=== PATIENT | male | born 1930 | race Caucasian/White ===

== ENCOUNTER 2018-08-13 21:10 | Inpatient (IN) ==
--- NOTE | 2018-08-13 21:31 | ED ---
HPI General Chief Complaint: Shortness of Breath/Dyspnea Stated Complaint: sob 111x 24 hours Time Seen by Provider: 08/13/18 21:25 Source: patient and family (Dr Simon-son) Mode of arrival: ambulatory Limitations: no limitations History of Present Illness MD Complaint: Reports shortness of breath and cough; Denies pain with inspiration, chest pain and "asthma attack" Onset (ago): day(s) (2) Context: Reports occurred during exertion; Denies recent illness, choking/ aspiration, medication noncompliance, allergen exposure, recent travel, smoke/ fume exposure, anxiety, trauma/injury, elevated blood glucose and CO exposure Severity: moderate Consistency/Duration: constant Relieving factors: upright position Exacerbating factors: exertion and coughing Known history of: Reports recurrent pneumonia; Denies COPD, asthma, congestive heart failure, diabetes, aspiration pneumonia, HIV, PE, DVT and IVDU Associated symptoms: Reports cough and wheezing; Denies chest pain, pain with inspiration, fever, sputum production, orthopnea, lower extremity pain, polyuria , polydipsia, paresthesias, palpitations, carpopedal spasm, hemoptysis, diaphoresis, nausea/vomiting, syncope, abdominal pain, rash, sense of impending doom, chest congestion, dizziness and lightheadedness Treatment prior to arrival: Reports other (son gave dose azithromycin today 500mg) Related Data Home oxygen amount: none Home Medications Medication Instructions Recorded Confirmed Aspirin Childrens 81 mg PO DAILY 08/13/18 08/13/18 allopurinol 300 mg PO DAILY 08/13/18 08/13/18 amlodipine [Norvasc] 10 mg PO DAILY 08/13/18 08/13/18 hydrochlorothiazide 12.5 mg PO DAILY 08/13/18 08/13/18 losartan 100 mg PO DAILY 08/13/18 08/13/18 metoprolol succinate [Toprol XL] 200 mg PO DAILY 08/13/18 08/13/18 pravastatin 40 mg PO DAILY 08/13/18 08/13/18 Allergies Allergy/AdvReac Type Severity Reaction Status Date / Time No Known Allergies Allergy Verified 08/13/18 21:26 Review of Systems ROS: all other systems reviewed are negative [facility] Medical History Medical History HTN (hypertension) (Acute) High cholesterol (Acute) Osteomyelitis (Acute) Pacemaker (Acute) Pneumonia (Acute) Atrial fibrillation (Acute) Surgical History Surgical History History of tonsillectomy (Acute) Hx of CABG (Acute) Social History Social History Substance History: No History of Abuse Second Hand Smoke Exposure: No Smoking Status: Never smoker How Often Do You Have a Drink Containing Alcohol: Never Recent Travel in [facility] within the Last 8 Weeks: Yes Recent Out of Country Travel within the Last 8 Weeks: No Exam Narrative Exam Narrative: GENERAL: Well-nourished, well-developed patient. No acute distress no respiratory distress with no accessory muscle use. No stridor no hoarseness. SKIN: Focused skin assessment warm/dry. HEAD: Normocephalic. EYES: No scleral icterus. No injection or drainage. NECK: Supple, trachea midline. No JVD or lymphadenopathy. CARDIOVASCULAR: Regular rate and rhythm without murmurs, gallops, or rubs. Radial dorsalis pedis pulses 2+ to palpation bilaterally. RESPIRATORY: Breath sounds equal bilaterally few end expiratory wheezing noted. No accessory muscle use. GASTROINTESTINAL: Abdomen soft, non-tender, nondistended. MUSCULOSKELETAL: No cyanosis, or edema. No calf tenderness swelling or Homans sign. BACK: Nontender without obvious deformity. No CVA tenderness. Course Initial Documented Vital Signs Pulse Rate 60 08/13/18 21:15 Last Documented Vital Signs Temperature 96.8 F L 08/15/18 20:00 Pulse Rate 60 08/15/18 20:20 Respiratory Rate 20 08/15/18 20:20 Blood Pressure 157/67 H 08/15/18 20:00 Pulse Oximetry 94 L 08/15/18 20:20 Medical Decision Making [facility] Narrative Medical decision making narrative: 87-year-old male with known history of previous pneumonia with current Pneumovax status and flu vaccine presents to the emergency department with onset of cold-like symptoms and congestion with wheezing since last evening. Symptoms have progressively worsened today. Patient was given dose of 500 mg azithromycin by his son Dr. Simon earlier today. Patient is followed by Dr. Gamez who called the emergency department requesting patient to be evaluated and for him to be notified. Patient has had nonproductive cough does not report orthopnea PND but has had some dyspnea on exertion. No dyspnea at rest. No lower extremity pain or swelling. Patient does have prior history of cardiac disease with previous bypass pacemaker and hypertension as well as borderline hyperglycemia. Patient denies any chest pain pleuritic chest pain no recent long distance travel. Patient placed on quality assurance monitor chassis with continuous pulse oximetry IV access obtain blood cultures lactic acid collected as well as specimen for influenza antigen. Patient is Eddie received 500 mg of azithromycin x1 dose today and patient will be presumptively administered Rocephin 1 g IV piggyback for possible community-acquired pneumonia. discussed with Dr Gamez requests [facility] admit Medical Screen Exam Complete: Yes Emergency Medical Condition: Yes Lab Data Result diagrams: 08/15/18 05:30 08/15/18 05:30 Lab Results 08/13/18 08/13/18 08/13/18 Range/Units 21:30 21:30 21:30 CBC w Diff Auto diff final WBC 13.3 H (4.0-11.0) th/mm3 RBC 3.95 L (4.50-5.90) mil/mm3 Hgb 12.1 L (13.0-17.0) gm/dL Hct 36.8 L (39.0-51.0) % MCV 93.1 (80.0-100.0) fL MCH 30.5 (27.0-34.0) pg MCHC 32.8 (32.0-36.0) % RDW 13.5 (11.6-17.2) % Plt Count 215 (150-450) th/mm3 MPV 8.3 (7.0-11.0) fL Neut % (Auto) 81.2 H (16.0-70.0) % Lymph % (Auto) 9.7 (9.0-44.0) % [place] % (Auto) 7.8 (0.0-8.0) % Eos % (Auto) 1.0 (0.0-4.0) % Baso % (Auto) 0.3 (0.0-2.0) % Neut # (Auto) 10.9 H (1.8-7.7) th/mm3 Lymph # (Auto) 1.3 (1.0-4.8) th/mm3 [place] # (Auto) 1.0 H (0.0-0.9) th/mm3 Eos # (Auto) 0.1 (0.0-0.4) th/mm3 Baso # (Auto) 0.0 (0.0-0.2) th/mm3 WBC Differential . Differential Comment . PT 10.4 (9.8-11.6) sec INR 1.0 Ratio APTT 28.7 (23.4-31.7) sec Sodium 129 L (136-145) meq/L Potassium 4.1 (3.5-5.1) meq/L Chloride 95 L (98-107) meq/L Carbon Dioxide 25.3 (21.0-32.0) meq/L Anion Gap 9 (5-15) meq/L BUN 27 H (7-18) mg/dL Creatinine 1.30 (0.60-1.30) mg/dL Estimated GFR 52 L (>89) mL/min Random Glucose 174 H (74-106) mg/dL Lactic Acid (0.4-2.0) mmol/L Calcium 8.1 L (8.5-10.1) mg/dL Magnesium 1.9 (1.5-2.5) mg/dL Total Bilirubin 0.7 (0.2-1.0) mg/dL AST 16 (15-37) U/L ALT 20 (12-78) U/L Alkaline Phosphatase 120 H (45-117) U/L Troponin I Less than 0.02 L (0.02-0.05) ng/mL B-Natriuretic Peptide (0-100) pg/mL Total Protein 7.2 (6.4-8.2) g/dL Albumin 3.5 (3.4-5.0) g/dL Urine Color (Yellw/Straw) Urine Clarity (Clear) Urine pH (5.0-8.5) Ur Specific Martin (1.002-1.035) Urine Protein (Neg-Trace) mg/dL Urine Glucose (UA) (Negative) mg/dL Urine Ketones (Negative) mg/dL Urine Occult Blood (Negative) Urine Nitrate (Negative) Urine Bilirubin (Negative) Urine Urobilinogen (Less than 2) mg/dL Ur Leukocyte Esterase (Negative) Urine RBC (0-3) /hpf Urine WBC (0-5) /hpf Ur Squamous Epith Cells (0-5) /hpf Micro UA Comment Ur Microscopic Review Urine Culture Comments 08/13/18 08/13/18 08/14/18 Range/Units 21:30 22:40 02:20 CBC w Diff WBC (4.0-11.0) th/mm3 RBC (4.50-5.90) mil/mm3 Hgb (13.0-17.0) gm/dL Hct (39.0-51.0) % MCV (80.0-100.0) fL MCH (27.0-34.0) pg MCHC (32.0-36.0) % RDW (11.6-17.2) % Plt Count (150-450) th/mm3 MPV (7.0-11.0) fL Neut % (Auto) (16.0-70.0) % Lymph % (Auto) (9.0-44.0) % [place] % (Auto) (0.0-8.0) % Eos % (Auto) (0.0-4.0) % Baso % (Auto) (0.0-2.0) % Neut # (Auto) (1.8-7.7) th/mm3 Lymph # (Auto) (1.0-4.8) th/mm3 [place] # (Auto) (0.0-0.9) th/mm3 Eos # (Auto) (0.0-0.4) th/mm3 Baso # (Auto) (0.0-0.2) th/mm3 WBC Differential Differential Comment PT (9.8-11.6) sec INR Ratio APTT (23.4-31.7) sec Sodium (136-145) meq/L Potassium (3.5-5.1) meq/L Chloride (98-107) meq/L Carbon Dioxide (21.0-32.0) meq/L Anion Gap (5-15) meq/L BUN (7-18) mg/dL Creatinine (0.60-1.30) mg/dL Estimated GFR (>89) mL/min Random Glucose (74-106) mg/dL Lactic Acid 1.7 (0.4-2.0) mmol/L Calcium (8.5-10.1) mg/dL Magnesium (1.5-2.5) mg/dL Total Bilirubin (0.2-1.0) mg/dL AST (15-37) U/L ALT (12-78) U/L Alkaline Phosphatase (45-117) U/L Troponin I (0.02-0.05) ng/mL B-Natriuretic Peptide 320 H (0-100) pg/mL Total Protein (6.4-8.2) g/dL Albumin (3.4-5.0) g/dL Urine Color Yellow (Yellw/Straw) Urine Clarity Clear (Clear) Urine pH 6.0 (5.0-8.5) Ur Specific Martin 1.015 (1.002-1.035) Urine Protein Negative (Neg-Trace) mg/dL Urine Glucose (UA) Negative (Negative) mg/dL Urine Ketones Negative (Negative) mg/dL Urine Occult Blood Negative (Negative) Urine Nitrate Negative (Negative) Urine Bilirubin Negative (Negative) Urine Urobilinogen 0.2 (Less than 2) mg/dL Ur Leukocyte Esterase Negative (Negative) Urine RBC 0-3 (0-3) /hpf Urine WBC 0-5 (0-5) /hpf Ur Squamous Epith Cells 0-5 (0-5) /hpf Micro UA Comment Culture not ind Ur Microscopic Review Microscopic reviewed Urine Culture Comments Culture not ind 08/14/18 08/14/18 08/15/18 Range/Units 06:45 06:45 05:30 CBC w Diff Auto diff final Auto diff final WBC 12.3 H 15.8 H (4.0-11.0) th/mm3 RBC 3.78 L 3.75 L (4.50-5.90) mil/mm3 Hgb 11.8 L 11.8 L (13.0-17.0) gm/dL Hct 35.6 L 35.0 L (39.0-51.0) % MCV 94.1 93.3 (80.0-100.0) fL MCH 31.3 31.5 (27.0-34.0) pg MCHC 33.2 33.8 (32.0-36.0) % RDW 13.3 13.4 (11.6-17.2) % Plt Count 199 209 (150-450) th/mm3 MPV 8.3 8.4 (7.0-11.0) fL Neut % (Auto) 93.3 H 88.3 H (16.0-70.0) % Lymph % (Auto) 5.0 L 5.8 L (9.0-44.0) % [place] % (Auto) 1.0 5.7 (0.0-8.0) % Eos % (Auto) 0.5 0.1 (0.0-4.0) % Baso % (Auto) 0.2 0.1 (0.0-2.0) % Neut # (Auto) 11.5 H 14.0 H (1.8-7.7) th/mm3 Lymph # (Auto) 0.6 L 0.9 L (1.0-4.8) th/mm3 [place] # (Auto) 0.1 0.9 (0.0-0.9) th/mm3 Eos # (Auto) 0.1 0.0 (0.0-0.4) th/mm3 Baso # (Auto) 0.0 0.0 (0.0-0.2) th/mm3 WBC Differential . . Differential Comment . . PT (9.8-11.6) sec INR Ratio APTT (23.4-31.7) sec Sodium 131 L (136-145) meq/L Potassium 3.9 (3.5-5.1) meq/L Chloride 93 L (98-107) meq/L Carbon Dioxide 26.3 (21.0-32.0) meq/L Anion Gap 12 (5-15) meq/L BUN 29 H (7-18) mg/dL Creatinine 1.30 (0.60-1.30) mg/dL Estimated GFR 52 L (>89) mL/min Random Glucose 215 H (74-106) mg/dL Lactic Acid (0.4-2.0) mmol/L Calcium 8.1 L (8.5-10.1) mg/dL Magnesium (1.5-2.5) mg/dL Total Bilirubin (0.2-1.0) mg/dL AST (15-37) U/L ALT (12-78) U/L Alkaline Phosphatase (45-117) U/L Troponin I (0.02-0.05) ng/mL B-Natriuretic Peptide (0-100) pg/mL Total Protein (6.4-8.2) g/dL Albumin (3.4-5.0) g/dL Urine Color (Yellw/Straw) Urine Clarity (Clear) Urine pH (5.0-8.5) Ur Specific Martin (1.002-1.035) Urine Protein (Neg-Trace) mg/dL Urine Glucose (UA) (Negative) mg/dL Urine Ketones (Negative) mg/dL Urine Occult Blood (Negative) Urine Nitrate (Negative) Urine Bilirubin (Negative) Urine Urobilinogen (Less than 2) mg/dL Ur Leukocyte Esterase (Negative) Urine RBC (0-3) /hpf Urine WBC (0-5) /hpf Ur Squamous Epith Cells (0-5) /hpf Micro UA Comment Ur Microscopic Review Urine Culture Comments 08/15/18 Range/Units 05:30 CBC w Diff WBC (4.0-11.0) th/mm3 RBC (4.50-5.90) mil/mm3 Hgb (13.0-17.0) gm/dL Hct (39.0-51.0) % MCV (80.0-100.0) fL MCH (27.0-34.0) pg MCHC (32.0-36.0) % RDW (11.6-17.2) % Plt Count (150-450) th/mm3 MPV (7.0-11.0) fL Neut % (Auto) (16.0-70.0) % Lymph % (Auto) (9.0-44.0) % [place] % (Auto) (0.0-8.0) % Eos % (Auto) (0.0-4.0) % Baso % (Auto) (0.0-2.0) % Neut # (Auto) (1.8-7.7) th/mm3 Lymph # (Auto) (1.0-4.8) th/mm3 [place] # (Auto) (0.0-0.9) th/mm3 Eos # (Auto) (0.0-0.4) th/mm3 Baso # (Auto) (0.0-0.2) th/mm3 WBC Differential Differential Comment PT (9.8-11.6) sec INR Ratio APTT (23.4-31.7) sec Sodium 129 L (136-145) meq/L Potassium 4.2 (3.5-5.1) meq/L Chloride 92 L (98-107) meq/L Carbon Dioxide 25.8 (21.0-32.0) meq/L Anion Gap 11 (5-15) meq/L BUN 43 H (7-18) mg/dL Creatinine 1.40 H (0.60-1.30) mg/dL Estimated GFR 48 L (>89) mL/min Random Glucose 210 H (74-106) mg/dL Lactic Acid (0.4-2.0) mmol/L Calcium 8.1 L (8.5-10.1) mg/dL Magnesium (1.5-2.5) mg/dL Total Bilirubin (0.2-1.0) mg/dL AST (15-37) U/L ALT (12-78) U/L Alkaline Phosphatase (45-117) U/L Troponin I (0.02-0.05) ng/mL B-Natriuretic Peptide (0-100) pg/mL Total Protein (6.4-8.2) g/dL Albumin (3.4-5.0) g/dL Urine Color (Yellw/Straw) Urine Clarity (Clear) Urine pH (5.0-8.5) Ur Specific Martin (1.002-1.035) Urine Protein (Neg-Trace) mg/dL Urine Glucose (UA) (Negative) mg/dL Urine Ketones (Negative) mg/dL Urine Occult Blood (Negative) Urine Nitrate (Negative) Urine Bilirubin (Negative) Urine Urobilinogen (Less than 2) mg/dL Ur Leukocyte Esterase (Negative) Urine RBC (0-3) /hpf Urine WBC (0-5) /hpf Ur Squamous Epith Cells (0-5) /hpf Micro UA Comment Ur Microscopic Review Urine Culture Comments Imaging Data Radiologist's impression: Chest X-Ray 08/13/18 21:25 CONCLUSION: No acute disease Chest X-Ray 08/15/18 00:00 CONCLUSION: 1. Cardiomegaly with mild positive fluid balance. ECG Data EKG Prior to Arrival: Yes Attestation: I personally reviewed and interpreted this ECG as follows: (EKG: Ventricular paced rhythm rate 63) Discharge Plan Discharge Disposition Patient Disposition: ED Admit(ED Internal Use Only) Discharge Condition Condition: Stable Discharge Order Discharge Orders: ED Use Only Admit Order (Routine); Ordered 08/13/18 Ordered By: Josie Jennings Discharge Details Diagnosis: Dyspnea, Bronchitis, CRI (chronic renal insufficiency) Physicians Team ED Provider: Josie Jennings Primary Care Provider: Enrrique Gamez Attending Provider: Baljinder Montes Other Providers: Abrahan Beckham ED Status: Left Department Discharge Information Discharge Date/Time: 08/14/18 00:35
--- NOTE | 2018-08-13 21:45 | XR ---
EXAM DATE: 08/13/2018 9:41 PM EST AGE/SEX: 87 years / Male INDICATIONS: Shortness of breath. CLINICAL DATA: This is the patient's initial encounter. Patient reports that signs and symptoms have been present for 1 day and indicates a pain score of 0/10. MEDICAL/SURGICAL HISTORY: . Renal failure, chronic. Hypertension. Cardiovascular disease; pneum onia. CABG. Pacemaker. COMPARISON: [facility], XR CHEST PA AND LAT, 01/18/2018. . FINDINGS: A pacing implement is present with control pack over left upper chest.. Cardiac silhouette is stable and mildly enlarged. No focal infiltrate or effusion. CONCLUSION: No acute disease Electronically signed by: Yg Bullock MD Board Certified Radiologist 08/13/2018 9:43 PM EST
[2018-08-13 21:58] LABS: Baso % (Auto) 0.3 % (0.0-2.0); Eos # (Auto) 0.1 th/mm3 (0.0-0.4); Hematocrit 36.8 % (39.0-51.0); Hemoglobin 12.1 gm/dL (13.0-17.0); Lymph # (Auto) 1.3 th/mm3 (1.0-4.8); Lymph % (Auto) 9.7 % (9.0-44.0); Mean Corpuscular HGB Conc 32.8 % (32.0-36.0); Mean Corpuscular Hemoglobin 30.5 pg (27.0-34.0); Mean Corpuscular Volume 93.1 fL (80.0-100.0); Mean Platelet Volume 8.3 fL (7.0-11.0); Mono % (Auto) 7.8 % (0.0-8.0); Neut # (Auto) 10.9 th/mm3 (1.8-7.7); Neut % (Auto) 81.2 % (16.0-70.0); Platelet Count 215 th/mm3 (150-450); Red Blood Count 3.95 mil/mm3 (4.50-5.90); Red Cell Distribution Width 13.5 % (11.6-17.2); White Blood Count 13.3 th/mm3 (4.0-11.0)
[2018-08-13 22:09] LABS: Chloride 95 meq/L (98-107); Potassium 4.1 meq/L (3.5-5.1); Sodium 129 meq/L (136-145)
[2018-08-13 22:12] LABS: Albumin 3.5 g/dL (3.4-5.0); Calcium 8.1 mg/dL (8.5-10.1)
[2018-08-13 22:13] LABS: Anion Gap 9 meq/L (5-15); Blood Urea Nitrogen 27 mg/dL (7-18); Carbon Dioxide 25.3 meq/L (21.0-32.0); Glucose,Random 174 mg/dL (74-106); Magnesium 1.9 mg/dL (1.5-2.5)
[2018-08-13 22:15] LABS: Activated Partial Thrombo Time 28.7 sec (23.4-31.7); Prothrombin Time 10.4 sec (9.8-11.6)
[2018-08-13 22:16] LABS: Alanine Aminotransferase 20 U/L (12-78); Aspartate Aminotransferase 16 U/L (15-37)
[2018-08-13 22:17] LABS: Glomerular Filtration Rate 52 mL/min (>89)
[2018-08-13 22:18] LABS: Total Protein 7.2 g/dL (6.4-8.2)
[2018-08-13 22:19] LABS: Alkaline Phosphatase 120 U/L (45-117)
[2018-08-13] MEDS ORDERED: Acetaminophen 325 MG Tablet PO PRN (22:58)
[2018-08-13] MEDS ORDERED: Bisacodyl 10 MG Supp RECTAL PRN (22:58)
[2018-08-13] MEDS ORDERED: MethylPREDNISolone Sod Succinate Inj 125 MG/2 ML Vial IV.PUSH ONE (23:36)
[2018-08-14] MEDS: Heparin - SQ 10,000 UNITS/ML Vial SQ SCH ×2 (00:17→10:44)
[2018-08-14 02:51] LABS: Bilirubin,Urine Negative (Negative); Clarity,Urine Clear (Clear); Color,Urine Yellow (Yellw/Straw); Glucose,Urine (UA) Negative (Negative); Leukocyte Esterase,Urine Negative (Negative); Nitrite,Urine Negative (Negative); Specific Gravity,Urine 1.015 (1.002-1.035); Urobilinogen,Urine 0.2 mg/dL (Less than 2)
[2018-08-14 02:54] LABS: RBC,Urine 0-3 /hpf (0-3); Squamous Epithelial Cell,Urine 0-5 /hpf (0-5); WBC,Urine 0-5 /hpf (0-5)
[2018-08-14] MEDS: Azithromycin Inj 500 MG in Sodium Chlor 0.9% Inj 250 ML IV.SIG SCH (08:00)
[2018-08-14] MEDS: Senna/Docusate Sodium 8.6/50 MG Tablet PO SCH ×2 (08:02→20:52)
[2018-08-14 08:30] LABS: Baso % (Auto) 0.2 % (0.0-2.0); Eos # (Auto) 0.1 th/mm3 (0.0-0.4); Eos % (Auto) 0.5 % (0.0-4.0); Hematocrit 35.6 % (39.0-51.0); Hemoglobin 11.8 gm/dL (13.0-17.0); Lymph # (Auto) 0.6 th/mm3 (1.0-4.8); Mean Corpuscular HGB Conc 33.2 % (32.0-36.0); Mean Corpuscular Hemoglobin 31.3 pg (27.0-34.0); Mean Corpuscular Volume 94.1 fL (80.0-100.0); Mean Platelet Volume 8.3 fL (7.0-11.0); Mono # (Auto) 0.1 th/mm3 (0.0-0.9); Neut # (Auto) 11.5 th/mm3 (1.8-7.7); Neut % (Auto) 93.3 % (16.0-70.0); Platelet Count 199 th/mm3 (150-450); Red Blood Count 3.78 mil/mm3 (4.50-5.90); Red Cell Distribution Width 13.3 % (11.6-17.2); White Blood Count 12.3 th/mm3 (4.0-11.0)
[2018-08-14 08:41] LABS: Potassium 3.9 meq/L (3.5-5.1)
[2018-08-14 08:48] LABS: Calcium 8.1 mg/dL (8.5-10.1)
[2018-08-14 08:49] LABS: Carbon Dioxide 26.3 meq/L (21.0-32.0)
--- NOTE | 2018-08-14 09:20 | P.HPIM ---
History of Present Illness Primary Care Physician: Enrrique Gamez MD Chief Complaint: Shortness of breath History of Present Illness: This is an 79-year-old male with history of hypertension, osteomyelitis, pneumonia, atrial fibrillation status post pacemaker placement presenting to the hospital with cough productive of clear sputum for about 4 days, associated with shortness of breath and generalized weakness but no nausea, vomiting, sore throat, fever, chills. He was started on azithromycin the day prior to presenting to the hospital but because the cough was worsening, patient's son Dr. Simon decided to bring the patient to the hospital. Presently, he is feeling better. He denies any chest pain, palpitation dysuria, frequency, urgency but has loose stools but no abdominal pain. His is also sick. Review of Systems Review of Systems: all other systems reviewed are negative [facility] Medical History Medical History HTN (hypertension) (Acute) High cholesterol (Acute) Osteomyelitis (Acute) Pacemaker (Acute) Pneumonia (Acute) Atrial fibrillation (Acute) Surgical History Surgical History History of tonsillectomy (Acute) Hx of CABG (Acute) Social History Social History Substance History: No History of Abuse Second Hand Smoke Exposure: No Smoking Status: Never smoker How Often Do You Have a Drink Containing Alcohol: Never Recent Travel in [facility] within the Last 8 Weeks: Yes Recent Out of Country Travel within the Last 8 Weeks: No Immunization History Tetanus Immunization: <5 Years Medications and Allergies Allergies Allergy/AdvReac Type Severity Reaction Status Date / Time No Known Allergies Allergy Verified 08/13/18 21:26 Home Medications Medication Instructions Recorded Confirmed Type Aspirin Childrens 81 mg PO DAILY 08/13/18 08/13/18 History allopurinol 300 mg PO DAILY 08/13/18 08/13/18 History amlodipine [Norvasc] 10 mg PO DAILY 08/13/18 08/13/18 History hydrochlorothiazide 12.5 mg PO DAILY 08/13/18 08/13/18 History losartan 100 mg PO DAILY 08/13/18 08/13/18 History metoprolol succinate [Toprol XL] 200 mg PO DAILY 08/13/18 08/13/18 History pravastatin 40 mg PO DAILY 08/13/18 08/13/18 History Active Medications: Active Medications Acetaminophen (Tylenol) 650 mg PO Q4H PRN PRN Reason: Temp > 100.4 Al Hydroxide/Mg Hydroxide (Milk Of Magnesia Liq) 30 ml PO Q12H PRN PRN Reason: Mild Constipation Albuterol (Duoneb Neb (Prn)) 1 ampul NEB Q4HR NEB PRN PRN Reason: SOB/Wheezing Last Admin: 08/14/18 07:39 Dose: 1 ampul Bisacodyl (Dulcolax Supp) 10 mg RECTAL DAILY PRN PRN Reason: SEVERE CONSITIPATION Heparin Sodium (Porcine) (Heparin Inj) 5,000 units SQ Q12H [facility] Last Admin: 08/14/18 00:17 Dose: 5,000 units Azithromycin 500 mg/ Sodium (Chloride) 250 mls @ 250 mls/hr IV.SIG Q24H [facility] Last Admin: 08/14/18 08:00 Dose: 250 mls/hr Ceftriaxone Sodium 1,000 mg/ (Sodium Chloride) 100 mls @ 200 mls/hr IV.SIG Q24H [facility] Lactulose (Lactulose Liq) 30 ml PO DAILY PRN PRN Reason: SEVERE CONSITIPATION Ondansetron HCl (Zofran Inj) 4 mg IV.PUSH Q6H PRN PRN Reason: NAUSEA OR VOMITING Senna/Docusate Sodium (Morena-Colace) 1 tab PO BID [facility] Last Admin: 08/14/18 08:02 Dose: 1 tab Sennosides (Senokot) 17.2 mg PO Q12H PRN PRN Reason: Moderate Constipation Sodium Chloride (Ns Flush) 2 ml IV.FLUSH BID [facility] Last Admin: 08/14/18 08:01 Dose: 2 ml Sodium Chloride (Ns Flush) 2 ml IV.FLUSH PRN PRN PRN Reason: FLUSH AFTER USING IV ACCESS Last Admin: 08/14/18 00:18 Dose: 2 ml Physical Exam Vital signs: Last Vital Signs Temp 97.2 F L 08/14/18 08:00 Pulse 61 08/14/18 08:00 Resp 16 08/14/18 08:00 BP 125/68 08/14/18 08:00 Pulse Ox 92 L 08/14/18 08:00 Intake & Output 08/12/18 08/13/18 08/14/1808/15/18 06:59 06:59 06:59 06:59 Intake Total 100 / 100 Output Total 400 / 400 Balance -300 / -300 Weight 93.4 kg Narrative: Not in distress, well-nourished, looks stated age, on nasal cannula. PERRL, pink conjunctiva without injection, anicteric Nose without bleeding, airway patent, no lymphadenopathy. No tonsillar congestion. Supple neck Normal rate and regular rhythm, no murmurs gallops or rubs appreciated. Lateral rhonchi at bases, no crackles, no wheezing. Normal respiratory effort. Normal bowel sounds, soft, non-tender, nondistended, no guarding. Extremities without clubbing, cyanosis, or edema. No rash of generalized distribution. Skin is warm and dry. AAO x3, no cranial nerve deficits, moves all 4 extremities, no focal neurologic deficits Results Labs CBC & Chem 7: 08/14/18 06:45 08/14/18 06:45 Imaging Impressions Chest X-Ray 08/13/18 21:25 CONCLUSION: No acute disease Caprini VTE Risk Assessment Caprini VTE Risk Assessment: Moderate/High Risk (score >= 2) Caprini Risk Assessment Model: Point Value = 1 Point Value = 2 Point Value = 3 Point Value = 5 Age 41-60 Minor surgery BMI > 25 kg/m2 Swollen legs Varicose veins or History of unexplained or recurrent spontaneous Oral contraceptives or hormone replacement Sepsis (< 1 month) Serious lung disease, including pneumonia (< 1 month) Abnormal pulmonary function Acute myocardial infarction Congestive heart failure (< 1 month) History of inflammatory bowel disease Medical patient at bed rest Age 61-74 Arthroscopic surgery Major open surgery (> 45 min) Laparoscopic surgery (> 45 min) Malignancy Confined to bed (> 72 hours) Immobilizing plaster cast Central venous access Age >= 75 History of VTE Family history of VTE Factor V Leiden Prothrombin [id number] Lupus anticoagulant Anticardiolipin antibodies Elevated serum homocysteine Heparin-induced thrombocytopenia Other congenital or acquired thrombophilia Stroke (< 1 month) Elective arthroplasty Hip, pelvis, or leg fracture Acute spinal cord injury (< 1 month) Prophylaxis Regimen: Total Risk Factor Score Risk Level Prophylaxis Regimen 0-1 Low Early ambulation 2 Moderate Order ONE of the following: *Sequential Compression Device (SCD) *Heparin 5000 units SQ BID 3-4 Higher Order ONE of the following medications: *Heparin 5000 units SQ TID *Enoxaparin/Lovenox 40 mg SQ daily (WT < 150 kg, CrCl > 30 mL/min) *Enoxaparin/Lovenox 30 mg SQ daily (WT < 150 kg, CrCl > 10-29 mL/min) *Enoxaparin/Lovenox 30 mg SQ BID (WT < 150 kg, CrCl > 30 mL/min) AND/OR *Sequential Compression Device (SCD) 5 or more Highest Order ONE of the following medications: *Heparin 5000 units SQ TID (Preferred with Epidurals) *Enoxaparin/Lovenox 40 mg SQ daily (WT < 150 kg, CrCl > 30 mL/min) *Enoxaparin/Lovenox 30 mg SQ daily (WT < 150 kg, CrCl > 10-29 mL/min) *Enoxaparin/Lovenox 30 mg SQ BID (WT < 150 kg, CrCl > 30 mL/min) AND *Sequential Compression Device (SCD) Assessment and Plan Plan This is an 87-year-old male with history of coronary artery disease status post CABG, hypertension, atrial fibrillation presenting with shortness of breath and cough Community-acquired pneumonia versus viral bronchopneumonia with bronchospasms- chest x-ray negative for infiltrates. Start Tessalon, codeine, bronchodilators [id number] and as needed, Solu-Medrol 40 mg every 12 hours, taper fast, continue ceftriaxone and azithromycin, recheck CBC tomorrow. Rapid flu negative , blood cultures pending, check Legionella antigen. BNP mildly elevated, receive a dose of Lasix. No history of congestive heart failure, rule out CHF wanted though unlikely especially with sick contacts , check echocardiogram. Coronary artery disease-restart metoprolol, aspirin, losartan, statin Atrial fibrillation-restart metoprolol, monitor Hypertension-restart Norvasc, losartan, metoprolol, vasotec as needed Hyponatremia-mild, sodium 131, NS for now, monitor BMP tomorrow, hold hydrochlorothiazide Chronic uremia, chronic kidney disease stage I-baseline creatinine around 1.3, monitor. DVT prophylaxis: Heparin Discussed with patient's son Dr. Simon H&P: Quality VTE Deep Vein Thrombosis/Pulmonary Embolism Present on Admission: No
[2018-08-14] MEDS ORDERED: Acetaminophen/Codeine 120/12 MG Elixir 5 ML UDC PO PRN (10:03)
[2018-08-14] MEDS: MethylPREDNISolone Sod Succinate Inj 40 MG/ML Vial IV.PUSH SCH ×2 (10:43→20:52)
[2018-08-14] MEDS: Allopurinol 300 MG Tablet PO SCH (10:43)
[2018-08-14] MEDS: Benzonatate 100 MG Capsule PO SCH ×2 (10:44→18:16)
[2018-08-14] MEDS: amLODIPine 10 MG Tablet PO SCH (10:44)
[2018-08-14] MEDS: Sod Chloride 0.9% Inj 1,000 ML IV.CONT SCH (11:28)
--- NOTE | 2018-08-14 14:18 | ECG ---
Date Performed: 08/13/2018 Time Performed: 21:41:46 PTAGE: 87 years EKG: ELECTRONIC VENTRICULAR PACEMAKER UNDERLYING ATRIAL FLUTTER ABNORMAL RHYTHM ECG Compared to PREVIOUS TRACING , the rhythm is now paced with underlying atrial flutter. PREVIOUS MARU N09/16/2015 11.59 DOCTOR: Edi Sterling Interpretating Date/Time 08/14/2018 14:16:24
[2018-08-15] MEDS: Heparin - SQ 10,000 UNITS/ML Vial SQ SCH ×2 (00:30→10:43)
[2018-08-15] MEDS: Benzonatate 100 MG Capsule PO SCH ×3 (02:23→17:52)
--- NOTE | 2018-08-15 04:12 | XR ---
EXAM DATE: 08/15/2018 3:45 AM EST AGE/SEX: 87 years / Male INDICATIONS: Congestion. CLINICAL DATA: This is the patient's subsequent encounter. Patient reports that signs and symptoms h ave been present for 3 days and indicates a pain score of 0/10. MEDICAL/SURGICAL HISTORY: . Renal failure, chronic. Hypertension. Cardiovascular disease; pneum onia. CABG. Pacemaker. COMPARISON: [facility], CHEST 1V SINGLE AP, 08/13/2018. . FINDINGS: Cardiac silhouette is enlarged with indistinct central pulmonary vascularity. Stable dual lead pacema ker and postsurgical features of median sternotomy. Mild diffuse interstitial prominence. Remainder o f exam is unchanged. CONCLUSION: 1. Cardiomegaly with mild positive fluid balance. Electronically signed by: Kevin Queen MD Board Certified Radiologist 08/15/2018 4:10 AM ALEJANDRA Abraham
[2018-08-15] MEDS: Sod Chloride 0.9% Inj 1,000 ML IV.CONT SCH (05:05)
[2018-08-15 06:46] LABS: Baso % (Auto) 0.1 % (0.0-2.0); Eos % (Auto) 0.1 % (0.0-4.0); Hemoglobin 11.8 gm/dL (13.0-17.0); Lymph # (Auto) 0.9 th/mm3 (1.0-4.8); Lymph % (Auto) 5.8 % (9.0-44.0); Mean Corpuscular HGB Conc 33.8 % (32.0-36.0); Mean Corpuscular Hemoglobin 31.5 pg (27.0-34.0); Mean Corpuscular Volume 93.3 fL (80.0-100.0); Mean Platelet Volume 8.4 fL (7.0-11.0); Mono # (Auto) 0.9 th/mm3 (0.0-0.9); Mono % (Auto) 5.7 % (0.0-8.0); Neut % (Auto) 88.3 % (16.0-70.0); Platelet Count 209 th/mm3 (150-450); Red Blood Count 3.75 mil/mm3 (4.50-5.90); Red Cell Distribution Width 13.4 % (11.6-17.2); White Blood Count 15.8 th/mm3 (4.0-11.0)
[2018-08-15 06:58] LABS: Potassium 4.2 meq/L (3.5-5.1)
[2018-08-15 07:03] LABS: Calcium 8.1 mg/dL (8.5-10.1)
[2018-08-15 07:04] LABS: Carbon Dioxide 25.8 meq/L (21.0-32.0)
--- NOTE | 2018-08-15 10:06 | P.PNIM ---
Subjective Interval history: Patient says he got poor sleep last night. Still with a raspy cough. Shortness of breath lately improved. Had episode of coughing, shortness of breath last night which has resolved. Physical Exam Vital signs: Vital Signs 08/14/18 12:00 08/14/18 14:16 08/14/18 16:00 Temperature 97.0 F L 97.6 F Pulse Rate 60 63 60 Respiratory Rate 18 18 18 Blood Pressure 149/65 H 135/63 Pulse Oximetry 92 L 94 L 08/14/18 20:00 08/14/18 20:25 08/15/18 00:00 Temperature 97.3 F L 96.2 F L Pulse Rate 105 H 60 60 Respiratory Rate 20 20 26 H Blood Pressure 97/61 L 195/88 H Pulse Oximetry 92 L 95 90 L 08/15/18 01:15 08/15/18 01:17 08/15/18 04:00 Temperature 96.4 F L Pulse Rate 60 60 Respiratory Rate 20 24 Blood Pressure 126/57 L Pulse Oximetry 92 L 91 L 08/15/18 07:11 08/15/18 08:00 Temperature 96.3 F L Pulse Rate 60 59 L Respiratory Rate 22 20 Blood Pressure 191/76 H Pulse Oximetry 95 95 Intake & Output 08/14/18 08/15/18 08/15/18 18:59 06:59 18:59 Intake Total 2330 / 2330 340 / 340 Output Total 600 / 600 Balance 1730 / 1730 340 / 340 Weight 93.5 kg Intake: IV 1250 / 1250 100 / 100 NS Inj 1,000 ML @ 84 mls/hr IV. 1000 / 1000 CONT .[id number] BEE Rx#: [id number] Azithromycin Inj 500 MG In NS 250 / 250 Inj 250 ML @ 250 mls/hr IV.SIG Q24H BEE Rx#:[id number] Rocephin Inj 1,000 MG In NS Inj 100 / 100 100 ML @ 200 mls/hr IV.SIG Q24H BEE Rx#:[id number] Oral 1080 / 1080 240 / 240 Output: Urine 600 / 600 Other: # Voids 4 3 Date of Last Bowel Movement 08/13/18 # Bowel Movements 0 Narrative: GENERAL: Sitting up in bed. Appears comfortable. Sleeping, wakes up for exam. SKIN: Warm and dry. HEAD: Normocephalic. EYES: No scleral icterus. No injection or drainage. NECK: Supple, trachea midline. No JVD CARDIOVASCULAR: Regular rate and rhythm without murmurs, gallops, or rubs. RESPIRATORY: Breath sounds equal bilaterally, with rales in the bases.. No accessory muscle use. GASTROINTESTINAL: Abdomen soft, non-tender, nondistended. MUSCULOSKELETAL: No cyanosis, or edema. BACK: Nontender without obvious deformity. No CVA tenderness. Results - Labs CBC & Chem 7: 08/15/18 05:30 08/15/18 05:30 Laboratory Results - last 24 hr 08/15/18 08/15/18 05:30 05:30 CBC w Diff Auto diff final WBC 15.8 H RBC 3.75 L Hgb 11.8 L Hct 35.0 L MCV 93.3 MCH 31.5 MCHC 33.8 RDW 13.4 Plt Count 209 MPV 8.4 Neut % (Auto) 88.3 H Lymph % (Auto) 5.8 L [place] % (Auto) 5.7 Eos % (Auto) 0.1 Baso % (Auto) 0.1 Neut # (Auto) 14.0 H Lymph # (Auto) 0.9 L [place] # (Auto) 0.9 Eos # (Auto) 0.0 Baso # (Auto) 0.0 WBC Differential . Differential Comment . Sodium 129 L Potassium 4.2 Chloride 92 L Carbon Dioxide 25.8 Anion Gap 11 BUN 43 H Creatinine 1.40 H Estimated GFR 48 L Random Glucose 210 H Calcium 8.1 L Microbiology 08/13/18 21:15 Blood - Peripheral Aerobic Blood Culture - Preliminary No growth in 1 day 08/13/18 21:15 Blood - Peripheral Anaerobic Blood Culture - Preliminary No growth in 1 day 08/13/18 21:30 Blood - Peripheral Aerobic Blood Culture - Preliminary No growth in 1 day 08/13/18 21:30 Blood - Peripheral Anaerobic Blood Culture - Preliminary No growth in 1 day - Imaging Impressions Chest X-Ray 08/15/18 00:00 CONCLUSION: 1. Cardiomegaly with mild positive fluid balance. Assessment and Plan - Plan This is an 87-year-old male with history of coronary artery disease status post CABG, hypertension, atrial fibrillation presenting with shortness of breath and cough //Community-acquired pneumonia versus viral bronchopneumonia with bronchospasms- chest x-ray negative for infiltrates. Start Tessalon, codeine, bronchodilators [id number] and as needed, Solu-Medrol 40 mg every 12 hours, taper fast, continue ceftriaxone and azithromycin, recheck CBC tomorrow. Rapid flu negative , blood cultures pending, check Legionella antigen. BNP mildly elevated, receive a dose of Lasix. No history of congestive heart failure, rule out CHF wanted though unlikely especially with sick contacts , check echocardiogram. = Follow-up echocardiogram. QTc 502. Will avoid fluoroquinolones or a azithromycin at this time. //Coronary artery disease-restart metoprolol, aspirin, losartan, statin -QRS 189. Follow-up echocardiogram. //Atrial fibrillation- paced. continue metoprolol, monitor //Hypertension-restart Norvasc, losartan, metoprolol, vasotec as needed -Labile blood pressure we will switch losartan to 50 mg twice daily. //Hyponatremia-mild, sodium 131, NS for now, monitor BMP tomorrow, hold hydrochlorothiazide -Sodium 129. Relatively stable. Continue to hold hydrochlorothiazide and monitor renal function. //Chronic uremia, chronic kidney disease stage I-baseline creatinine around 1.3 , monitor. -Discussed kidney function with patient's son and baseline appears to be around 1.3, 1.4. We will continue to monitor. //DVT prophylaxis: Heparin Discussed again with patient's son Dr. Simon Discussed Condition With: She, nurse, son at bedside. Discharge Planning: Continue inpatient management. Follow-up echocardiogram.
[2018-08-15] MEDS: amLODIPine 10 MG Tablet PO SCH (10:43)
[2018-08-15] MEDS: MethylPREDNISolone Sod Succinate Inj 40 MG/ML Vial IV.PUSH SCH ×2 (10:43→21:40)
[2018-08-15] MEDS: Allopurinol 300 MG Tablet PO SCH (10:44)
[2018-08-15] MEDS: Senna/Docusate Sodium 8.6/50 MG Tablet PO SCH ×2 (10:44→21:40)
[2018-08-15] MEDS: Azithromycin Inj 500 MG in Sodium Chlor 0.9% Inj 250 ML IV.SIG SCH (10:45)
--- NOTE | 2018-08-15 16:18 | ECHRPT ---
Indication: Syncope CONCLUSIONS Normal left ventricular size. Mild concentric left ventricular hypertrophy. The left ventricular systolic function is low normal with an estimated ejection fraction in the rang e of 50- 55%. The left atrial size is mildly dilated. Normal atrial septal thickness. Mild mitral valve regurgitation. Trace aortic valve regurgitation. There is mild tricuspid valve regurgitation. The estimated pulmonary arterial pressure is 52 mmHg. BP: / HR: Rhythm: MEASUREMENTS (Male / Female) Normal Values Technical Quality:Technically difficult study 2D ECHO LV Diastolic Diameter PLAX 4.9 cm 4.2 - 5.9 / 3.9 - 5.3 cm LV Systolic Diameter PLAX 3.5 cm IVS Diastolic Thickness 1.2 cm 0.6 - 1.0 / 0.6 - 0.9 cm LVPW Diastolic Thickness 1.1 cm 0.6 - 1.0 / 0.6 - 0.9 cm LV Relative Wall Thickness 0.5 RV Internal Dim ED PLAX 2.9 cm LVOT Diameter 2.2 cm Aortic Root Diameter 2.8 cm LA Systolic Diameter LX 4.4 cm 3.0 - 4.0 / 2.7 - 3.8 cm DOPPLER AV Peak Velocity 185.0 cm/s AV Peak Gradient 13.7 mmHg AV Mean Gradient 6.0 mmHg AV Velocity Time Integral 36.7 cm LVOT Peak Velocity 102.0 cm/s LVOT Peak Gradient 4.2 mmHg LVOT Velocity Time Integral 23.6 cm AV Area Cont Eq vti 2.4 cm AV Area Cont Eq pk 2.1 cm Mitral E Point Velocity 116.0 cm/s Mitral A Point Velocity 89.3 cm/s Mitral E to A Ratio 1.3 LV E' Lateral Velocity 8.2 cm/s Mitral E to LV E' Lateral Ratio 14.2 TR Peak Velocity 324.0 cm/s TR Peak Gradient 42.0 mmHg Right Atrial Pressure 10.0 mmHg Pulmonary Artery Systolic Pressu 52.0 mmHg Right Ventricular Systolic Press 52.0 mmHg PV Peak Velocity 96.4 cm/s PV Peak Gradient 3.7 mmHg FINDINGS LEFT VENTRICLE Normal left ventricular size. Mild concentric left ventricular hypertrophy. The left ventricular systolic function is low normal with an estimated ejection fraction in the rang e of 50- 55%. RIGHT VENTRICLE Normal right ventricular size and systolic function. LEFT ATRIUM The left atrial size is mildly dilated. RIGHT ATRIUM The right atrial size is normal. ATRIAL SEPTUM Normal atrial septal thickness. AORTA The aortic root and proximal ascending aorta are normal in size on limited imaging. MITRAL VALVE Mild mitral valve regurgitation. AORTIC VALVE Trileaflet aortic valve. Trace aortic valve regurgitation. TRICUSPID VALVE There is mild tricuspid valve regurgitation. The estimated pulmonary arterial pressure is 52 mmHg. PULMONARY VALVE Trivial pulmonary valve regurgitation. VESSELS The inferior vena cava was not well visualized. PERICARDIUM No pericardial effusion. Pratibha Montez MD, FACC (Electronically Signed) Final Date:15 August 2018 16:16
[2018-08-15] MEDS: hydrALAZINE 25 MG Tablet PO SCH (17:52)
[2018-08-16] MEDS: Heparin - SQ 10,000 UNITS/ML Vial SQ SCH ×3 (00:37→22:22)
[2018-08-16] MEDS: Benzonatate 100 MG Capsule PO SCH ×3 (02:48→17:08)
[2018-08-16 06:43] LABS: Baso % (Auto) 0.1 % (0.0-2.0); Eos % (Auto) 0.1 % (0.0-4.0); Hematocrit 36.1 % (39.0-51.0); Hemoglobin 12.2 gm/dL (13.0-17.0); Lymph # (Auto) 0.9 th/mm3 (1.0-4.8); Lymph % (Auto) 6.2 % (9.0-44.0); Mean Corpuscular HGB Conc 33.7 % (32.0-36.0); Mean Corpuscular Hemoglobin 31.7 pg (27.0-34.0); Mean Corpuscular Volume 94.1 fL (80.0-100.0); Mean Platelet Volume 8.3 fL (7.0-11.0); Mono # (Auto) 0.9 th/mm3 (0.0-0.9); Mono % (Auto) 6.3 % (0.0-8.0); Neut # (Auto) 12.8 th/mm3 (1.8-7.7); Neut % (Auto) 87.3 % (16.0-70.0); Platelet Count 232 th/mm3 (150-450); Red Blood Count 3.84 mil/mm3 (4.50-5.90); Red Cell Distribution Width 13.7 % (11.6-17.2); White Blood Count 14.6 th/mm3 (4.0-11.0)
[2018-08-16 07:02] LABS: Potassium 4.2 meq/L (3.5-5.1)
[2018-08-16 07:10] LABS: Albumin 3.5 g/dL (3.4-5.0); Calcium 8.4 mg/dL (8.5-10.1); Carbon Dioxide 26.6 meq/L (21.0-32.0); Magnesium 2.2 mg/dL (1.5-2.5)
[2018-08-16 07:14] LABS: Phosphorus 3.3 mg/dL (2.5-4.9); Total Protein 7.2 g/dL (6.4-8.2)
[2018-08-16] MEDS: Allopurinol 300 MG Tablet PO SCH (09:31)
[2018-08-16] MEDS: Senna/Docusate Sodium 8.6/50 MG Tablet PO SCH ×2 (09:31→22:23)
[2018-08-16] MEDS: amLODIPine 10 MG Tablet PO SCH (09:31)
[2018-08-16] MEDS: hydrALAZINE 25 MG Tablet PO SCH ×3 (09:32→17:08)
[2018-08-16] MEDS: MethylPREDNISolone Sod Succinate Inj 40 MG/ML Vial IV.PUSH SCH ×2 (09:34→22:23)
[2018-08-16] MEDS: Azithromycin Inj 500 MG in Sodium Chlor 0.9% Inj 250 ML IV.SIG SCH (10:13)
--- NOTE | 2018-08-16 10:21 | MB ---
cc: Abrahan Beckham MD DATE: 08/16/2018 PULMONARY CONSULTATION HISTORY OF PRESENT ILLNESS: The patient is an 79-year-old male with a past medical history of hypertension, coronary artery disease, previous CABG x5, pacemaker placement, atrial fibrillation, melanoma who was admitted to [facility] on 08/14/2018 for shortness of breath. The patient had a chest x-ray on arrival, which showed no acute disease. He had a repeat chest x-ray performed yesterday, which showed cardiomegaly with a mild positive fluid balance. The patient states that he had pneumonia 4 years ago. He reports a dry cough and feeling exhausted. He denies any constitutional symptoms of chest pain, orthopnea, PND, or edema of lower extremities. In addition, he denies any nausea, vomiting, or abdominal pain. The patient is a nonsmoker and denies any use of bronchodilators or oxygen at home. On arrival, he had leukocytosis with a WBC of 13.3 and currently is 14.6. His BNP 320 from 08/13/2018. Echocardiogram was performed yesterday, which showed EF of 50%-55%, mild to moderate pulmonary hypertension with a PA pressure of 52 mmHg. The patient has been hypertensive with systolic blood pressure 160s to 170s. He is currently on 3 liters home oxygen. The patient was started on broad spectrum antibiotics for possible pneumonia. He states that he is feeling overall better. PAST MEDICAL HISTORY: Significant for hypertension, hyperlipidemia, previous pneumonia 4 years ago, atrial fibrillation, melanoma, coronary artery disease. PAST SURGICAL HISTORY: CABG x5, previous pacemaker placement. SOCIAL HISTORY: Nonsmoker, occasional drinker. ALLERGIES: NO KNOWN DRUG ALLERGIES. FAMILY HISTORY: Noncontributory to present illness. PRESENT MEDICATIONS: Include: 1. DuoNeb. 2. Aspirin. 3. Norvasc. 4. Azithromycin. 5. Rocephin. 6. Hydralazine. 7. Cozaar. 8. Solu-Medrol. 9. Toprol-XL. 10. Pravachol. REVIEW OF SYSTEMS: As per HPI. Rest of review of systems is unremarkable. PHYSICAL EXAMINATION: GENERAL: An 87-year-old male, sitting in chair, in no acute respiratory distress. VITAL SIGNS: Temperature 97.8, pulse of 60, respiratory rate of 18, blood pressure 174/79, saturation 94% on 3 liter oxygen. HEENT: Atraumatic, normocephalic. Pupils are equal, round; reactive to light and accommodation. Extraocular muscles intact. Conjunctivae pink. Nonicteric sclerae. Oral mucosa within normal. NECK: Supple. No JVD, adenopathy or thyromegaly. Trachea in the midline. CARDIOVASCULAR: Regular rate and rhythm. Normal S1, S2. No murmurs, rubs or gallops noted. PULMONARY: Bilateral equal air entry with coarse breath sounds and mild rhonchi. ABDOMEN: Soft, nontender. No distention. Positive bowel sounds. EXTREMITIES: No cyanosis, clubbing or edema. NEUROLOGIC: No focal sensory deficit. LABORATORY DATA: Sodium 127, potassium 4.2, chloride 88, CO2 26, BUN 44, creatinine 1.2, glucose 203. WBC 14.6, hemoglobin 12, hematocrit 36, platelet count 232. RADIOGRAPHIC STUDIES: Chest x-ray from yesterday showed mild positive fluid balance and cardiomegaly. IMPRESSION: 1. Respiratory insufficiency. 2. Tracheobronchitis. 3. Mild pulmonary edema. 4. Diastolic congestive heart failure, likely secondary to uncontrolled hypertension. 5. Hypertension. 6. Leukocytosis. 7. Hyponatremia. 8. History of coronary artery disease and coronary artery bypass graft. 9. History of melanoma. RECOMMENDATIONS: 1. Continue to wean down oxygen as tolerated to maintain sats above 92%. 2. Continue with bronchodilators, DuoNeb every 4 hours plus every 2 hours p.r.n. for shortness of breath. 3. Continue with Solu-Medrol for now 40 mg IV every 12 hours. 4. Continue with antibiotics. He is currently on Rocephin and azithromycin. Monitor for signs of infection, which include fever and WBC. 5. Check sputum culture with Gram stain. His influenza screening is negative on 08/13/2018. 6. We will obtain a CT pulmonary angiogram to rule out thromboembolism and for further evaluation of pulmonary parenchyma. 7. We will diurese with Lasix 40 mg IV x1. Check a BNP. 8. The patient is off IV fluids. He was getting normal saline at 84 mL an hour. 9. Optimize blood pressure control per primary team. The patient is on Norvasc 10 mg daily. 10. Hydralazine 25 mg t.i.d. 11. Cozaar 50 mg b.i.d. 12. Gastrointestinal and deep venous thrombosis prophylaxis. The patient is on heparin 5000 units subcutaneous every 12. Further recommendations will be based on hospital course. Thank you for this consultation and for allowing us to participate in this patient's care. MD BO Carty/yehuda , 09:48 AM , 09:58 AM
--- NOTE | 2018-08-16 13:09 | XR ---
EXAM DATE: 08/16/2018 1:06 PM EST AGE/SEX: 87 years / Male INDICATIONS: . Productive cough and shortness of breath. CLINICAL DATA: This is the patient's subsequent encounter. Patient reports that signs and symptoms h ave been present for 3 days and indicates a pain score of 0/10. MEDICAL/SURGICAL HISTORY: . Renal failure, chronic. Hypertension. Cardiovascular disease; pneum onia Pacemaker. CABG, Cardiac bypass x 5. COMPARISON: [facility], CHEST 1V SINGLE AP, 08/15/2018. . FINDINGS: There is a focal infiltrate in the left lung base. The right lung is grossly clear. The heart size is enlarged but stable. There is evidence of previous cardiac thoracic surgery. No significant pleural effusions are demonstrated. There is a pacemaker overlying the left chest. There is no pneumothorax. CONCLUSION: Focal parenchymal infiltrate in the posterior left lower lung. Electronically signed by: Mike Lemus MD Board Certified Radiologist 08/16/2018 1:07 PM EST
--- NOTE | 2018-08-16 17:00 | NM ---
EXAM DATE: 08/16/2018 4:56 PM EST AGE/SEX: 87 years / Male INDICATIONS: Short of breath. CLINICAL DATA: This is the patient's initial encounter. Patient reports that signs and symptoms have been present for 1 day and indicates a pain score of 1/10. MEDICAL/SURGICAL HISTORY: Hypercholesterolemia. Hypertension. Osteomyelitis. Pneumonia, a-fi b. Pacemaker. Tonsillectomy. CABG. COMPARISON: [facility], CHEST 2V AP&LAT, 08/16/2018. . DOSE: 1.57 mCi Tc99m DTPA aerosol 8.8 mCi Tc99m MAA IV TECHNIQUE: Following five minutes of tidal breathing of DTPA aerosol, planar images of the lungs wer e performed in eight projections. The patient was then injected with MAA, and eight-view perfusion s can was performed. FINDINGS: There is a homogeneous pattern of aerosol delivery to the periphery of both lungs. No focal ventilat ory defects are seen. The perfusion lung scan demonstrates a homogenous pattern of uptake in both lungs. No segmental or s ubsegmental defects are seen. CONCLUSION: 1. Unremarkable ventilation and perfusion study. This is a low probability for PE. Electronically signed by: Mike Lemus MD Board Certified Radiologist 08/16/2018 4:59 PM EST
--- NOTE | 2018-08-16 18:53 | P.PNIM ---
Subjective Interval history: Patient says that his shortness of breath is much improved today. Denies any chest pain. Says he feels like he might be able to go home in the next couple days. Physical Exam Vital signs: Vital Signs 08/15/18 20:00 08/15/18 20:20 08/16/18 00:00 Temperature 96.8 F L 97.8 F Pulse Rate 60 60 66 Respiratory Rate 18 20 18 Blood Pressure 157/67 H 174/79 H Pulse Oximetry 92 L 94 L 94 L 08/16/18 07:27 08/16/18 08:00 08/16/18 11:21 Temperature 96.4 F L Pulse Rate 60 61 60 Respiratory Rate 18 20 18 Blood Pressure 181/77 H Pulse Oximetry 94 L 90 L 08/16/18 12:00 08/16/18 15:55 08/16/18 16:00 Temperature 96 F L 96.7 F L Pulse Rate 60 61 60 Respiratory Rate 20 20 20 Blood Pressure 136/63 160/68 H Pulse Oximetry 90 L 93 L Intake & Output 08/15/18 08/16/18 08/16/18 18:59 06:59 18:59 Intake Total 180 / 180 440 / 440 730 / 730 Output Total 200 / 200 Balance 180 / 180 240 / 240 730 / 730 Weight 94.8 kg Intake: IV 350 / 350 250 / 250 Azithromycin Inj 500 MG In NS 250 / 250 250 / 250 Inj 250 ML @ 250 mls/hr IV.SIG Q24H BEE Rx#:[id number] Rocephin Inj 1,000 MG In NS Inj 100 / 100 100 ML @ 200 mls/hr IV.SIG Q24H BEE Rx#:[id number] Oral 180 / 180 90 / 90 480 / 480 Output: Urine 200 / 200 Other: # Urine Diapers 3 Date of Last Bowel Movement 08/11/18 # Bowel Movements 5 Narrative: GENERAL: Sitting up in chair at bedside. Appears comfortable. Awake, alert. SKIN: Warm and dry. HEAD: Normocephalic. EYES: No scleral icterus. No injection or drainage. NECK: Supple, trachea midline. No JVD CARDIOVASCULAR: Regular rate and rhythm without murmurs, gallops, or rubs. RESPIRATORY: Breath sounds equal bilaterally, with rales in the bases as before.. No accessory muscle use. GASTROINTESTINAL: Abdomen soft, non-tender, nondistended. MUSCULOSKELETAL: No cyanosis, or edema. BACK: Nontender without obvious deformity. No CVA tenderness. Results - Labs CBC & Chem 7: 08/16/18 05:20 08/16/18 05:20 Laboratory Results - last 24 hr 08/16/18 08/16/18 08/16/18 05:20 05:20 05:20 CBC w Diff Auto diff final WBC 14.6 H RBC 3.84 L Hgb 12.2 L Hct 36.1 L MCV 94.1 MCH 31.7 MCHC 33.7 RDW 13.7 Plt Count 232 MPV 8.3 Neut % (Auto) 87.3 H Lymph % (Auto) 6.2 L [place] % (Auto) 6.3 Eos % (Auto) 0.1 Baso % (Auto) 0.1 Neut # (Auto) 12.8 H Lymph # (Auto) 0.9 L [place] # (Auto) 0.9 Eos # (Auto) 0.0 Baso # (Auto) 0.0 WBC Differential . Differential Comment . Sodium 127 L Potassium 4.2 Chloride 88 L Carbon Dioxide 26.6 Anion Gap 12 BUN 44 H Creatinine 1.20 Estimated GFR 57 L Random Glucose 203 H Calcium 8.4 L Phosphorus 3.3 Magnesium 2.2 Total Bilirubin 0.3 Direct Bilirubin 0.1 Indirect Bilirubin 0.2 AST 22 ALT 28 Alkaline Phosphatase 106 B-Natriuretic Peptide 445 H Total Protein 7.2 Albumin 3.5 Microbiology 08/13/18 21:15 Blood - Peripheral Aerobic Blood Culture - Preliminary No growth in 3 days 08/13/18 21:15 Blood - Peripheral Anaerobic Blood Culture - Preliminary No growth in 3 days 08/13/18 21:30 Blood - Peripheral Aerobic Blood Culture - Preliminary No growth in 3 days 08/13/18 21:30 Blood - Peripheral Anaerobic Blood Culture - Preliminary No growth in 3 days - Imaging Impressions Chest X-Ray 08/16/18 00:00 CONCLUSION: Focal parenchymal infiltrate in the posterior left lower lung. Pulmonary Perfusion Imaging 08/16/18 00:00 CONCLUSION: 1. Unremarkable ventilation and perfusion study. This is a low probability for PE. Assessment and Plan - Plan This is an 87-year-old male with history of coronary artery disease status post CABG, hypertension, atrial fibrillation presenting with shortness of breath and cough //Community-acquired pneumonia versus viral bronchopneumonia with bronchospasms- chest x-ray negative for infiltrates. Start Tessalon, codeine, bronchodilators [id number] and as needed, Solu-Medrol 40 mg every 12 hours, taper fast, continue ceftriaxone and azithromycin, recheck CBC tomorrow. Rapid flu negative , blood cultures pending, check Legionella antigen. BNP mildly elevated, receive a dose of Lasix. No history of congestive heart failure, rule out CHF wanted though unlikely especially with sick contacts , check echocardiogram. = Follow-up echocardiogram. QTc 502. = 08/16 check EKG for QTC as patient is on a azithromycin. Echocardiogram with trace aortic regurgitation. BNP elevated in the 400s. Agree with diuresis as per pulmonology. VQ scan low probability for embolism. Appreciate pulmonology assistance. Appears to be improving, hopefully go home in the next few days. //Coronary artery disease-restart metoprolol, aspirin, losartan, statin -QRS 189. Echo reviewed with preserved ejection fraction. //Atrial fibrillation- paced. continue metoprolol, monitor //Hypertension-restart Norvasc, losartan, metoprolol, vasotec as needed -Labile blood pressure we will switch losartan to 50 mg twice daily. -Blood pressure improved with diuresis we will continue to monitor. //Hyponatremia-mild, sodium 131, NS for now, monitor BMP tomorrow, hold hydrochlorothiazide -Sodium 129. Relatively stable. Continue to hold hydrochlorothiazide and monitor renal function. -Sodium 127. Likely secondary to fluid overload. Stable currently. Will monitor. //Chronic uremia, chronic kidney disease stage I-baseline creatinine around 1.3 , monitor. -Discussed kidney function with patient's son and baseline appears to be around 1.3, 1.4. We will continue to monitor. //DVT prophylaxis: Heparin Discussed again with patient's son Dr. Simon Discharge Planning: Continue inpatient management. Hopefully discharge in the next 2 days. PT consult ordered and pending.
[2018-08-17] MEDS: Benzonatate 100 MG Capsule PO SCH ×3 (03:14→17:29)
[2018-08-17 07:15] LABS: Eos % (Auto) 0.1 % (0.0-4.0); Hematocrit 37.3 % (39.0-51.0); Hemoglobin 12.4 gm/dL (13.0-17.0); Lymph # (Auto) 0.9 th/mm3 (1.0-4.8); Lymph % (Auto) 6.6 % (9.0-44.0); Mean Corpuscular HGB Conc 33.2 % (32.0-36.0); Mean Corpuscular Volume 93.2 fL (80.0-100.0); Mean Platelet Volume 8.2 fL (7.0-11.0); Mono # (Auto) 0.8 th/mm3 (0.0-0.9); Mono % (Auto) 5.6 % (0.0-8.0); Neut # (Auto) 12.3 th/mm3 (1.8-7.7); Neut % (Auto) 87.7 % (16.0-70.0); Platelet Count 255 th/mm3 (150-450); Red Blood Count 4.01 mil/mm3 (4.50-5.90); Red Cell Distribution Width 13.7 % (11.6-17.2)
[2018-08-17 07:26] LABS: Potassium 3.6 meq/L (3.5-5.1)
[2018-08-17 07:35] LABS: Calcium 8.5 mg/dL (8.5-10.1)
[2018-08-17 07:36] LABS: Albumin 3.5 g/dL (3.4-5.0); Carbon Dioxide 28.8 meq/L (21.0-32.0); Magnesium 2.3 mg/dL (1.5-2.5)
[2018-08-17 07:39] LABS: Phosphorus 3.6 mg/dL (2.5-4.9)
[2018-08-17] MEDS: Senna/Docusate Sodium 8.6/50 MG Tablet PO SCH ×2 (08:34→22:24)
[2018-08-17] MEDS: hydrALAZINE 25 MG Tablet PO SCH ×3 (08:35→17:29)
[2018-08-17] MEDS: Allopurinol 300 MG Tablet PO SCH (08:35)
[2018-08-17] MEDS: amLODIPine 10 MG Tablet PO SCH (08:35)
[2018-08-17] MEDS: Azithromycin Inj 500 MG in Sodium Chlor 0.9% Inj 250 ML IV.SIG SCH (08:35)
[2018-08-17] MEDS: MethylPREDNISolone Sod Succinate Inj 40 MG/ML Vial IV.PUSH SCH (08:42)
--- NOTE | 2018-08-17 08:51 | P.PNPL ---
Subjective Interval history: Patient is sitting in bed in NAD. Afebrile. V/Q scan yesterday showed low prob PE. Afebrile. Physical Exam Vital signs: Vital Signs 08/16/18 11:21 08/16/18 12:00 08/16/18 15:55 Temperature 96 F L Pulse Rate 60 60 61 Respiratory Rate 18 20 20 Blood Pressure 136/63 Pulse Oximetry 90 L 08/16/18 16:00 08/16/18 19:40 08/16/18 20:00 Temperature 96.7 F L 96.0 F L Pulse Rate 60 80 62 Respiratory Rate 20 20 20 Blood Pressure 160/68 H 178/74 H Pulse Oximetry 93 L 94 L 94 L 08/16/18 23:25 08/17/18 00:00 08/17/18 07:10 Temperature 97.4 F L Pulse Rate 67 60 60 Respiratory Rate 22 20 16 Blood Pressure 152/67 H Pulse Oximetry 93 L 94 L 08/17/18 08:00 Temperature 98.6 F Pulse Rate Respiratory Rate 19 Blood Pressure 130/59 L Pulse Oximetry 92 L Intake & Output 08/16/18 08/17/18 08/17/18 18:59 06:59 18:59 Intake Total 730 / 730 580 / 580 Balance 730 / 730 580 / 580 Weight 94.6 kg Intake: IV 250 / 250 100 / 100 Azithromycin Inj 500 MG In NS 250 / 250 Inj 250 ML @ 250 mls/hr IV.SIG Q24H BEE Rx#:[id number] Rocephin Inj 1,000 MG In NS Inj 100 / 100 100 ML @ 200 mls/hr IV.SIG Q24H BEE Rx#:[id number] Oral 480 / 480 480 / 480 Other: # Voids 3 Date of Last Bowel Movement 08/11/18 # Bowel Movements 5 - Constitutional no acute distress - Routine HEENT Exam Head: Present: normocephalic, atraumatic Eye: Present: EOMI, PERRL, normal accommodation, conjunctivae pink ENT: Present: mucous membranes moist - Routine Neck Exam Present: supple, full ROM, trachea midline - Routine Respiratory Exam Present: CTA bilaterally - Routine Cardiovascular Exam Present: RRR, S1, S2 - Routine Abdominal Exam Present: soft, normoactive bowel sounds - Routine Skin Exam Present: intact, dry - Routine Neurological Exam Present: alert, oriented X3, CN II-XII intact Assessment and Plan - Plan 1. Respiratory insufficiency. 2. Left pulmonary infiltrate 3. Mild pulmonary edema. 4. Diastolic congestive heart failure 5. Hypertension. 6. Leukocytosis. 7. Hyponatremia. 8. CAD/CABG 9. History of melanoma. Plan Continue with oxygen maintain sats > 92%. Bronchodilators Change prednisone 20mg BID taper dose Abx- on Rocephin and azithromycin. Monitor for signs of infection( fever and WBC). Influenza screening negative on 08/13/2018. V/Q scan low prob PE Echo showed EF 50-55%, PAP 52mmHg Diurese with Lasix as needed. s/p Lasix 40mg x1 yesterday GI/DVT prophylaxis- on heparin 5000 units subcutaneous every 12.
--- NOTE | 2018-08-17 09:09 | P.DCO ---
- Diagnosis (1) Bronchitis Status: Acute (2) CRI (chronic renal insufficiency) Status: Acute - Physical Therapy Order: Evaluate and treat - Home Health Nursing Order: CHF education, Nursing assessment with vital signs - Case Management Consult Case Management Consult-Home Health: Yes - Certification I have seen patient Ej Simon on 08/17/18. My clinical findings support the need for the requested home health care services because: Limited ability to care for self I certify that my clinical findings support that this patient is homebound because: Unsafe to leave home unassisted
--- NOTE | 2018-08-17 09:18 | P.PNIM ---
Subjective Interval history: Patient says that shortness of breath is improved today. Cough is improved. Physical Exam Vital signs: Vital Signs 08/16/18 11:21 08/16/18 12:00 08/16/18 15:55 Temperature 96 F L Pulse Rate 60 60 61 Respiratory Rate 18 20 20 Blood Pressure 136/63 Pulse Oximetry 90 L 08/16/18 16:00 08/16/18 19:40 08/16/18 20:00 Temperature 96.7 F L 96.0 F L Pulse Rate 60 80 62 Respiratory Rate 20 20 20 Blood Pressure 160/68 H 178/74 H Pulse Oximetry 93 L 94 L 94 L 08/16/18 23:25 08/17/18 00:00 08/17/18 07:10 Temperature 97.4 F L Pulse Rate 67 60 60 Respiratory Rate 22 20 16 Blood Pressure 152/67 H Pulse Oximetry 93 L 94 L 08/17/18 08:00 Temperature 98.6 F Pulse Rate Respiratory Rate 19 Blood Pressure 130/59 L Pulse Oximetry 92 L Intake & Output 08/16/18 08/17/18 08/17/18 18:59 06:59 18:59 Intake Total 730 / 730 580 / 580 Balance 730 / 730 580 / 580 Weight 94.6 kg Intake: IV 250 / 250 100 / 100 Azithromycin Inj 500 MG In NS 250 / 250 Inj 250 ML @ 250 mls/hr IV.SIG Q24H BEE Rx#:[id number] Rocephin Inj 1,000 MG In NS Inj 100 / 100 100 ML @ 200 mls/hr IV.SIG Q24H BEE Rx#:[id number] Oral 480 / 480 480 / 480 Other: # Voids 3 Date of Last Bowel Movement 08/11/18 # Bowel Movements 5 Narrative: GENERAL: Sitting up in chair at bedside. Appears comfortable. Awake, alert. SKIN: Warm and dry. HEAD: Normocephalic. EYES: No scleral icterus. No injection or drainage. NECK: Supple, trachea midline. No JVD CARDIOVASCULAR: Regular rate and rhythm without murmurs, gallops, or rubs. RESPIRATORY: Breath sounds equal bilaterally, with rales in the bases , improved from yesterday.. No accessory muscle use. GASTROINTESTINAL: Abdomen soft, non-tender, nondistended. MUSCULOSKELETAL: No cyanosis, or edema. BACK: Nontender without obvious deformity. No CVA tenderness. Results - Labs CBC & Chem 7: 08/17/18 05:17 08/17/18 05:17 Laboratory Results - last 24 hr 08/16/18 08/17/18 08/17/18 05:20 05:17 05:17 CBC w Diff Auto diff final WBC 14.0 H RBC 4.01 L Hgb 12.4 L Hct 37.3 L MCV 93.2 MCH 31.0 MCHC 33.2 RDW 13.7 Plt Count 255 MPV 8.2 Neut % (Auto) 87.7 H Lymph % (Auto) 6.6 L Mellette % (Auto) 5.6 Eos % (Auto) 0.1 Baso % (Auto) 0.0 Neut # (Auto) 12.3 H Lymph # (Auto) 0.9 L Mellette # (Auto) 0.8 Eos # (Auto) 0.0 Baso # (Auto) 0.0 WBC Differential . Differential Comment . Sodium 129 L Potassium 3.6 Chloride 90 L Carbon Dioxide 28.8 Anion Gap 10 BUN 46 H Creatinine 1.20 Estimated GFR 57 L Random Glucose 198 H Calcium 8.5 Phosphorus 3.6 Magnesium 2.3 Total Bilirubin 0.5 Direct Bilirubin 0.2 Indirect Bilirubin 0.3 AST 17 ALT 25 Alkaline Phosphatase 103 B-Natriuretic Peptide 445 H Total Protein 7.0 Albumin 3.5 Microbiology 08/13/18 21:15 Blood - Peripheral Aerobic Blood Culture - Preliminary No growth in 3 days 08/13/18 21:15 Blood - Peripheral Anaerobic Blood Culture - Preliminary No growth in 3 days 08/13/18 21:30 Blood - Peripheral Aerobic Blood Culture - Preliminary No growth in 3 days 08/13/18 21:30 Blood - Peripheral Anaerobic Blood Culture - Preliminary No growth in 3 days - Imaging Impressions Chest X-Ray 08/16/18 00:00 CONCLUSION: Focal parenchymal infiltrate in the posterior left lower lung. Pulmonary Perfusion Imaging 08/16/18 00:00 CONCLUSION: 1. Unremarkable ventilation and perfusion study. This is a low probability for PE. Assessment and Plan - Assessment (1) Bronchitis Code(s): J40 - Bronchitis, not specified as acute or chronic Status: Acute (2) CRI (chronic renal insufficiency) Code(s): N18.9 - Chronic kidney disease, unspecified Status: Acute - Plan This is an 87-year-old male with history of coronary artery disease status post CABG, hypertension, atrial fibrillation presenting with shortness of breath and cough //Community-acquired pneumonia versus viral bronchopneumonia with bronchospasms- chest x-ray negative for infiltrates. Start Tessalon, codeine, bronchodilators [id number] and as needed, Solu-Medrol 40 mg every 12 hours, taper fast, continue ceftriaxone and azithromycin, recheck CBC tomorrow. Rapid flu negative , blood cultures pending, check Legionella antigen. BNP mildly elevated, receive a dose of Lasix. No history of congestive heart failure, rule out CHF wanted though unlikely especially with sick contacts , check echocardiogram. = Follow-up echocardiogram. QTc 502. = 08/16 check EKG for QTC as patient is on a azithromycin. Echocardiogram with trace aortic regurgitation. BNP elevated in the 400s. Agree with diuresis as per pulmonology. VQ scan low probability for embolism. Appreciate pulmonology assistance. Appears to be improving, hopefully go home in the next few days. = 08/16. Home oxygen evaluation. Taper steroids to 20 mg by mouth twice daily prednisone. Will discontinue azithromycin as QTC is 525. Patient is paced. He has had several days of treatment and this should be adequate. Continue on ceftriaxone. //Acute exacerbation of diastolic congestive heart failure -Off IV fluids. Status post diuresis with improvement. //Coronary artery disease-restart metoprolol, aspirin, losartan, statin -QRS 189. Echo reviewed with preserved ejection fraction. //Atrial fibrillation- paced. continue metoprolol, monitor //Hypertension-restart Norvasc, losartan, metoprolol, vasotec as needed -Labile blood pressure we will switch losartan to 50 mg twice daily. -Blood pressure improved with diuresis we will continue to monitor. //Hyponatremia-mild, sodium 131, NS for now, monitor BMP tomorrow, hold hydrochlorothiazide -Sodium 129. Relatively stable. Continue to hold hydrochlorothiazide and monitor renal function. -Sodium 127. Likely secondary to fluid overload. Stable currently. Will monitor. -Sodium 129 improved. We will continue to monitor. //Chronic uremia, chronic kidney disease stage I-baseline creatinine around 1.3 , monitor. -Discussed kidney function with patient's son and baseline appears to be around 1.3, 1.4. We will continue to monitor. -BUN increased to 46. Will monitor. //DVT prophylaxis: Heparin Discharge Planning: = Pending home oxygen evaluation =Hopefully discharge in the next 1-2 days. PT consult recommends home with home health.
[2018-08-17] MEDS: predniSONE 20 MG Tablet PO SCH ×2 (09:57→22:24)
[2018-08-17] MEDS: Heparin - SQ 10,000 UNITS/ML Vial SQ SCH ×2 (10:58→22:25)
--- NOTE | 2018-08-17 20:42 | ECG ---
Date Performed: 08/16/2018 Time Performed: 19:37:35 PTAGE: 87 years EKG: ELECTRONIC VENTRICULAR PACEMAKER ATRIAL FLUTTER ABNORMAL RHYTHM ECG PREVIOUS TRACING : 08/13/2018 21.41 DOCTOR: Dusty Capone Interpretating Date/Time 08/17/2018 20:39:38
[2018-08-18 00:40] VITALS: RESP 20
[2018-08-18] MEDS: Benzonatate 100 MG Capsule PO SCH ×2 (02:41→10:25)
[2018-08-18] MEDS: amLODIPine 10 MG Tablet PO SCH (08:29)
[2018-08-18] MEDS: hydrALAZINE 25 MG Tablet PO SCH ×2 (08:29→12:33)
[2018-08-18] MEDS: predniSONE 20 MG Tablet PO SCH (08:29)
[2018-08-18] MEDS: Allopurinol 300 MG Tablet PO SCH (08:29)
[2018-08-18] MEDS: Senna/Docusate Sodium 8.6/50 MG Tablet PO SCH (08:29)
[2018-08-18 09:07] LABS: Hematocrit 38.1 % (39.0-51.0); Hemoglobin 12.6 gm/dL (13.0-17.0); Mean Corpuscular HGB Conc 33.2 % (32.0-36.0); Mean Corpuscular Hemoglobin 30.9 pg (27.0-34.0); Mean Corpuscular Volume 93.2 fL (80.0-100.0); Mean Platelet Volume 8.2 fL (7.0-11.0); Platelet Count 254 th/mm3 (150-450); Potassium 3.9 meq/L (3.5-5.1); Red Blood Count 4.08 mil/mm3 (4.50-5.90); Red Cell Distribution Width 13.4 % (11.6-17.2); White Blood Count 14.2 th/mm3 (4.0-11.0)
[2018-08-18 09:11] LABS: Calcium 8.6 mg/dL (8.5-10.1)
[2018-08-18 09:12] LABS: Albumin 3.2 g/dL (3.4-5.0); Carbon Dioxide 27.2 meq/L (21.0-32.0); Magnesium 2.7 mg/dL (1.5-2.5)
[2018-08-18 09:15] LABS: Phosphorus 3.1 mg/dL (2.5-4.9)
[2018-08-18 09:16] LABS: Total Protein 6.6 g/dL (6.4-8.2)
[2018-08-18 09:42] LABS: Lymphocytes 9 % (9-44); Monocytes 11 % (0-8); Path Slide Review N; Platelet Estimate Normal (Normal); Platelet Morphology Normal (Normal); RBC Morphology Normal (Normal)
[2018-08-18] MEDS: Heparin - SQ 10,000 UNITS/ML Vial SQ SCH (10:24)
--- NOTE | 2018-08-18 10:35 | P.DS ---
Date of admission: 08/16/18 09:12 Primary care physician: Enrrique Gamez MD Brief History from admission: This is an 79-year-old male with history of hypertension, osteomyelitis, pneumonia, atrial fibrillation status post pacemaker placement presenting to the hospital with cough productive of clear sputum for about 4 days, associated with shortness of breath and generalized weakness but no nausea, vomiting, sore throat, fever, chills. He was started on azithromycin the day prior to presenting to the hospital but because the cough was worsening, patient's son Dr. Simon decided to bring the patient to the hospital. Presently, he is feeling better. He denies any chest pain, palpitation dysuria, frequency, urgency but has loose stools but no abdominal pain. His is also sick. DS: Diagnosis - Discharge Diagnosis (1) Bronchitis Status: Acute (2) CRI (chronic renal insufficiency) Status: Acute DS: Medications - Discharge Medications Prescriptions: hydralazine 25 mg PO TID 30 Days #90 tab ipratropium-albuterol 1 amp NEB Q6HR NEB 30 Days ml losartan 50 mg PO BID 30 Days #60 tab prednisone See Taper PO BID #10 tab DS: Summary Hospital Course: For problem based summary from most recent progress note, please see below. This is an 87-year-old male with history of coronary artery disease status post CABG, hypertension, atrial fibrillation presenting with shortness of breath and cough //Community-acquired pneumonia versus viral bronchopneumonia with bronchospasms- chest x-ray negative for infiltrates. Start Tessalon, codeine, bronchodilators [id number] and as needed, Solu-Medrol 40 mg every 12 hours, taper fast, continue ceftriaxone and azithromycin, recheck CBC tomorrow. Rapid flu negative , blood cultures pending, check Legionella antigen. BNP mildly elevated, receive a dose of Lasix. No history of congestive heart failure, rule out CHF wanted though unlikely especially with sick contacts , check echocardiogram. = Follow-up echocardiogram. QTc 502. = 08/16 check EKG for QTC as patient is on a azithromycin. Echocardiogram with trace aortic regurgitation. BNP elevated in the 400s. Agree with diuresis as per pulmonology. VQ scan low probability for embolism. Appreciate pulmonology assistance. Appears to be improving, hopefully go home in the next few days. = 08/17. Home oxygen evaluation. Taper steroids to 20 mg by mouth twice daily prednisone. Will discontinue azithromycin as QTC is 525. Patient is paced. He has had several days of treatment and this should be adequate. Continue on ceftriaxone. = 08/18. Patient doing well. Discharge home on oxygen. Taper prednisone. Blood pressure medications have been adjusted. Blood pressure is a little bit elevated today and will be started on low-dose hydrochlorothiazide. Will need to follow-up with primary care for labs as outpatient. Patient conveys understanding. //Acute exacerbation of diastolic congestive heart failure -Off IV fluids. Status post diuresis with improvement. //Coronary artery disease-restart metoprolol, aspirin, losartan, statin -QRS 189. Echo reviewed with preserved ejection fraction. Blood pressure control. //Atrial fibrillation- paced. continue metoprolol, monitor //Hypertension-restart Norvasc, losartan, metoprolol, vasotec as needed -Labile blood pressure we will switch losartan to 50 mg twice daily. -Blood pressure improved with diuresis we will continue to monitor. //Hyponatremia-mild, sodium 131, NS for now, monitor BMP tomorrow, hold hydrochlorothiazide -Sodium 129. Relatively stable. Continue to hold hydrochlorothiazide and monitor renal function. -Sodium 127. Likely secondary to fluid overload. Stable currently. Will monitor. -Sodium 129 improved. We will continue to monitor. = Sodium 132. Improved. //Chronic uremia, chronic kidney disease stage I-baseline creatinine around 1.3 , monitor. -Discussed kidney function with patient's son and baseline appears to be around 1.3, 1.4. We will continue to monitor. -BUN increased to 46. Will monitor. = BUN stable. //DVT prophylaxis: Heparin Discharge Planning: Discharge home on home oxygen. Follow-up with primary care as outpatient. PT consult recommends home with home health. - Time Spent with Patient Total time spent providing and/or coordinating discharge services: Greater than 30 minutes - Quality: VTE Deep Vein Thrombosis/Pulmonary Embolism Present on Admission: No Exam Vital signs: Vital Signs 08/17/18 12:00 08/17/18 13:35 08/17/18 16:00 Temperature 97.2 F L 97.2 F L Pulse Rate 60 60 60 Respiratory Rate 20 18 22 Blood Pressure 128/69 136/63 Pulse Oximetry 96 95 08/17/18 19:30 08/17/18 20:00 08/17/18 23:31 Temperature 97.5 F L Pulse Rate 60 62 62 Respiratory Rate 20 20 18 Blood Pressure 164/76 H Pulse Oximetry 95 94 L 08/18/18 00:00 08/18/18 07:50 08/18/18 08:00 Temperature 96 F L 96.5 F L Pulse Rate 60 63 61 Respiratory Rate 20 20 20 Blood Pressure 174/67 H 182/77 H Pulse Oximetry 93 L 96 93 L Intake & Output 08/17/18 08/18/18 08/18/18 18:59 06:59 18:59 Intake Total 1090 / 1090 100 / 100 Output Total 800 / 800 Balance 290 / 290 100 / 100 Intake: IV 250 / 250 100 / 100 Azithromycin Inj 500 MG In NS 250 / 250 Inj 250 ML @ 250 mls/hr IV.SIG Q24H BEE Rx#:[id number] Rocephin Inj 1,000 MG In NS Inj 100 / 100 100 ML @ 200 mls/hr IV.SIG Q24H BEE Rx#:[id number] Oral 840 / 840 Output: Urine 800 / 800 Other: # Voids 3 Date of Last Bowel Movement 08/08/18 08/17/18 Results Procedures completed during hospitalization: No invasive procedures. Labs on day of discharge: Labs from last 24 hours 08/18/18 08/18/18 08:16 08:16 CBC w Diff Slide review pending WBC 14.2 H RBC 4.08 L Hgb 12.6 L Hct 38.1 L MCV 93.2 MCH 30.9 MCHC 33.2 RDW 13.4 Plt Count 254 MPV 8.2 WBC Differential Manual diff final Seg Neuts % (Manual) 78 H Band Neuts % (Manual) 2 Lymphocytes % (Manual) 9 Monocytes % (Manual) 11 H Abs Neuts (Manual) 11.4 H Differential Comment . Platelet Estimate Normal Platelet Morphology Normal RBC Morphology Normal Sodium 133 L Potassium 3.9 Chloride 95 L Carbon Dioxide 27.2 Anion Gap 11 BUN 42 H Creatinine 1.30 Estimated GFR 52 L Random Glucose 217 H Calcium 8.6 Phosphorus 3.1 Magnesium 2.7 H Total Bilirubin 0.5 Direct Bilirubin 0.1 Indirect Bilirubin 0.4 AST 15 ALT 26 Alkaline Phosphatase 90 Total Protein 6.6 Albumin 3.2 L Preliminary micro results at discharge 08/13/18 21:15 Aerobic Blood Culture - Preliminary Blood - Peripheral No growth in 4 days Anaerobic Blood Culture - Preliminary No growth in 4 days 08/13/18 21:30 Aerobic Blood Culture - Preliminary Blood - Peripheral No growth in 4 days Anaerobic Blood Culture - Preliminary No growth in 4 days - Impressions ITS Impressions Chest X-Ray 08/16/18 00:00 CONCLUSION: Focal parenchymal infiltrate in the posterior left lower lung. Pulmonary Perfusion Imaging 08/16/18 00:00 CONCLUSION: 1. Unremarkable ventilation and perfusion study. This is a low probability for PE. Discharge Plan - Discharge Disposition Patient Disposition: /Home Health Service - Discharge Condition Condition: Stable - Discharge Order Discharge Orders: Discharge Order (Routine); Ordered 08/18/18 Ordered By: Baljinder Montes - Discharge Details Anticipated Discharge Date: 08/18/18 - Physicians Team Primary Care Provider: Enrrique Gamez Attending Provider: Baljinder Montes Other Providers: Abrahan Beckham MD
[2018-08-18 12:14] VITALS: BP 149/82; PULSE 60; TEMP 97.3; O2SAT 95
== END 2018-08-18 13:36 | disposition home health service (06) | DRG 193 ==
LOC: PHEDA 21:10 → PHED 21:10 → PH3 08-14 00:35
PROVIDERS: ADMIT Internal Medicine; ATTEND Internal Medicine
CPT/HCPCS: 71010; 71020; 71045; 71046; 78582; 80048; 80053; 80069; 80076; 81001; 83520; 83605; 83735; 83880; 84484; 85025; 85610; 85730; 87040; 87275; 87276; 87804; 90765; 93005; 93306; 94150; 94618; 94620; 94640; 94664; 94665; 96365; 96366; 96375; 96376; 97162; 99285; A9519; A9540; A9567; C1094; G0378; J0456; J0696; J1644; J1940; J2920; J2930; J7030; J7050; J7506; J7512